=== PATIENT | male | born 1985 | race Caucasian/White ===

== ENCOUNTER → 2020-01-12 15:06 | Outpatient (CLI) | payer OTHER, SELFPAY ==
--- NOTE | ~2020-01-12 | US_ITS ---
EXAMINATION: US scrotum doppler DATE: 01/12/2020 15:44 INDICATION: Chronic palpable area at the right testis. TECHNIQUE: Testicular sonogram utilizing grayscale and Doppler COMPARISON: None. FINDINGS: The right testis measures 5.7 x 3.0 x 3.2 cm. The left testis measures 4.9 x 2.8 x 3.4 cm. Symmetric normal grayscale appearance to both testes. There is normal vascular flow to both testes. The palpabl e abnormality at the right testis corresponds to a benign 3 mm anechoic tunica cyst. The right epidid ymis is normal with normal vascular flow. The left epididymis is normal with normal vascular flow. Th ere is no varicocele or hydrocele. IMPRESSION: 1. 3 mm tunica cyst along the periphery of the right testis which corresponds to the palpable abnorm ality of concern. Otherwise normal scrotal ultrasound. Reviewed, dictated and finalized at location A. 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 3 mm tunica cyst along the periphery of the right testis which corresponds to the palpable abnormality of concern. Otherwise normal scrotal ultrasound.
== END ==
PROVIDERS: PCP Internal Medicine; Visit Provider Nurse Practitioner
DX: N50.89 Other specified disorders of the male genital organs (principal)
CPT/HCPCS: 76870; 93976

== ENCOUNTER 2020-08-22 16:07 | Observation (INO) | payer OTHER, SELFPAY ==
--- NOTE | ~2020-08-22 | US_ITS ---
EXAMINATION: US right upper quadrant DATE: 08/23/2020 08:19 INDICATION: Abnormal liver function tests. Abdominal pain. TECHNIQUE: Multiple grayscale and Doppler ultrasound images of the abdomen were obtained. COMPARISON: CT abdomen and pelvis 08/22/2020 FINDINGS: The visualized portions of the head and body of the pancreas are normal. The liver is charlie l without focal lesion. There is no liver surface nodularity. There is normal flow in main portal vei n. The gallbladder is normal in size and contains gallstones. No gallbladder wall thickening or sonog raphic Renee sign. The common duct is normal and measures 5 mm. IMPRESSION: 1. Cholelithiasis. No evidence of acute cholecystitis. Reviewed, dictated and finalized at location A.
--- NOTE | ~2020-08-22 | XR_ITS ---
EXAMINATION: XR ERCP DATE: 08/24/2020 13:51 INDICATION: Choledocholithiasis. TECHNIQUE: 5 spot fluoroscopic images of the right upper quadrant were obtained during endoscopic ret rograde cholangiopancreatography (ERCP). Fluoroscopy exposure time was 140 seconds. COMPARISON: Cholangiogram 08/23/2020 FINDINGS: Images demonstrate the endoscope in the second portion of the duodenum. There is opacificat ion of the biliary tree. Images demonstrate a balloon sweeping the common duct. There are surgical cl ips from cholecystectomy. IMPRESSION: 1. Balloon sweeping of the common duct. Please refer to the ERCP procedure note for additional detail s. Reviewed, dictated and finalized at location A. IMPRESSION: 1. Balloon sweeping of the common duct. Please refer to the ERCP procedure note for additional details.
--- NOTE | ~2020-08-22 | XR_ITS ---
EXAMINATION: XR cholangiogram surg 1st inj EXAM DATE: 08/23/2020 19:45 INDICATION: Gallstones. TECHNIQUE: Multiples Cine fluoroscopic images were obtained during injection of the cystic duct duri ng laparoscopic cholecystectomy. Procedure performed by Dr. Kirill Butt DO on 08/23/2020 19: 45, radiologist was not present. Total fluoroscopic time of 0.5 minutes. A total of 255 images sent to PACS from the exam. There is no prior study for comparison. FINDINGS: The cystic duct has been injected. There is mild common hepatic duct dilation. There is a filling defect which is mobile, in the distal aspect of the common bile duct on all 3 injections, medel spicious for cholelithiasis. Forward flow of contrast confirmed into the duodenum. Contrast extrava sation is most likely from the injection site. IMPRESSION: CBD filling defect could be choledocholithiasis. Ampulla patent. Reviewed, dictated and finalized at location A.
--- NOTE | ~2020-08-22 | CT_ITS ---
EXAMINATION: CT abdomen pelvis w con DATE: 08/22/2020 20:44 INDICATION: Abdominal pain TECHNIQUE: Computed tomography (CT) of the abdomen and pelvis was performed with 100 cc Omnipaque 350 intravenous contrast. The dose-length product was 1075.18 mGy-cm. Automated exposure control and ite rative reconstruction technique were employed. COMPARISON: No prior studies for comparison. FINDINGS: There is bibasilar dependent atelectasis. Heart size upper normal. No significant pleural o r pericardial effusion. There is mild biliary dilatation with common bile duct measuring 1 cm at the pancreatic head. Gallbladder is mildly distended. The pancreas, adrenal glands are unremarkable. The spleen is unremarkable. There is an accessory splenule. There is a left renal cyst. Bowel pattern non obstructive. There is a 2 cm left renal cyst. There are small subcentimeter hypodensities of the kidn eys, most likely cysts. No free air or free fluid. Nonobstructive bowel gas pattern. No evidence for diverticulitis or appendicitis. No abnormal pelvic masses or fluid collections. There is grade 1 spon dylolisthesis at L5-S1 secondary to bilateral spondylolysis. IMPRESSION: 1. Mild gallbladder distention with biliary dilatation. CBD measures 1 cm. No obstructing stone or ma ss identified. Reviewed, dictated and finalized at location A. IMPRESSION: 1. Mild gallbladder distention with biliary dilatation. CBD measures 1 cm. No o bstructing stone or mass identified.
[2020-08-22 16:19] VITALS: BP 149/90; PULSE 91; RESP 16; TEMP 36.4; O2SAT 100
[2020-08-22 16:30] LABS: Basophils Absolute Auto 0.1 K/mm3 (0.0-0.1); Basophils Percent Auto 0.4 % (0.2-1.2); Eosinophils Absolute Auto 0.3 K/mm3 (0-0.3); Eosinophils Percent Auto 2.3 % (0-4.4); Hematocrit 56.5 % (42.0-52.0); Hemoglobin 18.1 g/dL (14.0-18.0); Immature Granulocyte Absolute 0.04 K/mm3 (0.00-0.031); Immature Granulocyte Percent A 0.3 % (0-0.5); Lymphocytes Percent Auto 12.1 % (18.3-44.2); Mean Corpuscular Hemoglobin 28.6 pg (26-34); Mean Corpuscular Volume 89.4 fl (80-100); Mean Platelet Volume 9.3 fl (7.4-10.4); Monocytes Absolute Auto 0.7 K/mm3 (0.1-0.6); Monocytes Percent Auto 5.8 % (2.6-8.5); Neutrophils Absolute Auto 9.8 K/mm3 (1.3-6.7); Neutrophils Percent Auto 79.1 % (45.5-73.1); Platelet Count Result 297 k/mm3 (150-375); Red Blood Count 6.32 M/mm3 (4.6-6.20); Red Cell Distribution Width 14.4 % (11.5-14.5); White Blood Count 12.4 K/mm3 (4.5-10.0)
[2020-08-22 16:41] LABS: Albumin Level 4.8 g/dL (3.5-5.1); Alkaline Phosphatase 180 U/L (38-126); Anion Gap 8 mmol/L (8-16); Aspartate Amino Transferase 303 U/L (17-59); Bilirubin,Total 2.4 mg/dL (0.2-1.3); Blood Urea Nitrogen 12 mg/dL (9-20); Calcium 9.4 mg/dL (8.4-10.2); Carbon Dioxide 29 mmol/L (22-30); Chloride 103 mmol/L (98-107); Estimated CRCL calculation 130 ml/min; Estimated Glomerular Filt Rate > 60; Glucose 99 mg/dL (75-110); Sodium 140 mmol/L (137-145)
[2020-08-22 16:49] LABS: Add Urine Microscopic? YES; Amorphous Sediment Urine Few; Appearance Urine Clear (Clear); Bacteria Urine Trace /hpf; Bilirubin Urine Negative (Negative); Blood Urine Negative (Negative); Color Urine Amber (Yellow); Glucose Urine UA Negative (Negative); Ketones Urine Negative (Negative); Leukocyte Esterase Ur Negative LEU/UL (Negative); Mucus Urine Rare /lpf; Nitrate Urine Negative (Negative); Protein Urine Negative (Negative); Specific Grav Ur 1.017 (1.001-1.035); Squamous Epithelial Cell Urine Rare /hpf (Few); WBC Urine 0-3 /hpf
[2020-08-22 16:51] LABS: Alanine Aminotransferase 820 U/L (4-50); Lipase 2975 U/L (23-300)
--- NOTE | 2020-08-22 20:16 | ED.GENADULT ---
HPI - General Adult General Chief complaint: Abdominal Pain Stated complaint: abd pain Time Seen by Provider: 08/22/20 19:51 Source: RN notes reviewed History of Present Illness HPI narrative: Patient presents emergency department from home for abdominal pain. Patient states he has had pain since approximately noon today the pain is located in the upper abdomen and does not radiate described as sharp and stabbing notes associated nausea he denies any fevers or chills chest pain shortness of breath diarrhea or any other symptoms he states he had similar episode approximately a year ago was seen in the ER diagnosed with an ulcer at that time and on a PPI which did help states he got off of that had another episode abdominal pain and was restarted on it by his PCP scheduled to see Dr. Adair Kovacs tomorrow for GI consultation Related Data Home Medications Medication Instructions Recorded Confirmed escitalopram oxalate 20 mg tablet 20 mg PO DAILY 10/28/19 lamotrigine 150 mg tablet 150 mg PO DAILY 10/28/19 Allergies Allergy/AdvReac Type Severity Reaction Status Date / Time No Known Allergies Allergy Mild Verified 08/22/20 20:08 Review of Systems Review of Systems: Narrative: Gen.: Denies fevers or chills ENT: Denies congestion Respiratory: Denies shortness of breath or cough CV: Denies chest pain or palpitations GI: See HPI denies burning, urgency, frequency or hematuria Musculoskeletal: Denies back pain or muscle pain Neuro: Denies numbness, tingling, weakness or focal weakness Skin: Denies rash Except as documented, all other systems reviewed and negative PMFSH Past Medical History Medical History Depression Social History Social History Smoking status: Never smoker Alcohol intake: current Alcohol use details: rarely Gender identity (if verbalized by the patient): Male Exam Narrative: Exam Narrative: APPEARANCE: No acute distress, nontoxic, resting in bed HEENT: Normocephalic, atraumatic, OMM RESPIRATORY: No respiratory distress, clear to auscultation bilaterally with no rhonchi wheezing or rales CARDIOVASCULAR: RRR s murmur ABDOMINAL: Soft nondistended tender palpation epigastric, right upper quadrant and left upper quadrant no tenderness right lower quadrant left lower quadrant no rebound or guarding MUSCULOSKELETAl: Moves all extremities. No clubbing, cyanosis or edema. NEURO: Awake and alert. Following commands, speech normal, no focal deficits SKIN:: Warm, dry. Normal Color PSYCHIATRIC: Normal affect/mood Course Course Emergency Course: Called and discussed Wikiera presentation work-up agrees with consult at this time Discussed with Suraj for GI presentation work-up agrees with consult request patient started on Zosyn Discussed with Dr. Willett presentation work-up agrees with admission at this time Discussed with patient and family results of workup and diagnosis. Discussed need for admission. Patient and family understand and agree to current treatment plan Vital Signs Vital signs: Vital Signs Temperature 97.6 F 08/22/20 16:19 Pulse Rate 91 08/22/20 16:19 Respiratory Rate 16 08/22/20 16:19 Blood Pressure 149/90 H 08/22/20 16:19 Pulse Oximetry 100 08/22/20 16:19 Temperature 97.6 F 08/22/20 16:19 Pulse Rate 68 08/22/20 20:56 Respiratory Rate 18 08/22/20 20:56 Blood Pressure 130/79 08/22/20 20:56 Pulse Oximetry 100 08/22/20 20:56 Medical Decision Making Vital Signs Vital Signs: Vital Signs Temperature 97.6 F 08/22/20 16:19 Pulse Rate 91 08/22/20 16:19 Respiratory Rate 16 08/22/20 16:19 Blood Pressure 149/90 H 08/22/20 16:19 Pulse Oximetry 100 08/22/20 16:19 Temperature 97.6 F 08/22/20 16:19 Pulse Rate 68 08/22/20 20:56 Respiratory Rate 18 08/22/20 20:56 Blood Pressure 130/79 08/22/20 20:56
[2020-08-22] MEDS: SODIUM CHLORIDE 0.9% IV 1,000 ML 999 ML IV CONT ×2 (20:18→20:19)
[2020-08-22] MEDS: ONDANSETRON INJ 4 MG/2 ML VIAL IV PUSH (20:19)
[2020-08-22] MEDS: MORPHINE SULFATE (*CRX) 4 MG/ML INJ IV PUSH (20:19)
[2020-08-22 20:56] VITALS: BP 130/79; PULSE 68; RESP 18; O2SAT 100
[2020-08-22 22:03] VITALS: BP 106/65; PULSE 70; RESP 18; O2SAT 100
[2020-08-22 22:44] VITALS: BP 100/59; PULSE 71; RESP 18; O2SAT 98
[2020-08-22] MEDS: SODIUM CHLORIDE 0.9% IV 1,000 ML 125 ML IV CONT (23:09)
--- NOTE | 2020-08-22 23:23 | ADMGEN ---
This patient, Braxton Strickland, was admitted to 2 Medical Room 261-01. Patient/family oriented to hospital policies and general routines including ID bracelet, bed and alarms, visiting hours, pain management, procedures, bathroom and other care routines, personal items, smoking policy, room service/diet, and visiting hours. Information on how to activate the Rapid Response Team has been discussed. Patient/Family are encouraged to report perceived risks to care and to ask questions if they do not understand what they are told or what they should do.
[2020-08-22 23:55] VITALS: BP 133/69; PULSE 71; RESP 16; TEMP 36.4; O2SAT 100; BMI 32.6
[2020-08-23] VITALS (10 sets, daily range): BP systolic 99–144; BP diastolic 43–80; PULSE 59–82; RESP 15–20; TEMP 36–36.4; O2SAT 93–100
--- NOTE | 2020-08-23 04:09 | PM.IMHP ---
H&P: HPI History of Present Illness Date/Time: 08/23/20 04:09 Chief Complaint: Abdominal pain Narrative: 34-year-old previously healthy male who presented to the ER with recurrent abdominal pain. The patient reports that he has had intermittent abdominal pain for over 2 years . He reports that his abdominal pain has become more frequent over the last 2 weeks. His pain has been occurring every 3 days. Pain is worse after eating. The pain is in the epigastric region and does not radiate. his pain is a 10/10 when it occurs. Is accompanied by severe diaphoresis due to his pain. He is not having any nausea and vomiting with the symptoms. He has not noticed any scleral icterus or jaundice. His pain usually lasts about 4 hours each time. But this time the pain is lasted approximately 8 hours. It was improved after morphine administration. The pain had pretty much resolved until the histotechnologist supervisor hours this morning at which time he developed a dull ache. He reports that the pain is directly in the epigastric region and is worse with palpation. He denies any measured fevers but was feeling chilled. The pain is sharp and stabbing in nature. He had recently been treated with PPI therapy which seemed to help his symptoms. He had not seen a greenhouse technician previously. He was recently referred to Dr. Young And was supposed to see him 08/23/2020 in the clinic. He does admit to snoring frequently. He does not feel well rested after sleeping. Review of Systems Review of Systems: Narrative: 12 systems were reviewed with pertinent positives and negatives per HPI. Except as documented in the HPI, all other systems were reviewed and are negative. [facility] Past Medical History Medical History (Updated 08/23/20 @ 04:15 by Karissa Willett DO) Depression Thoracic back pain Surgical History Surgical History (Updated 08/23/20 @ 07:28 by Karissa Willett DO) No pertinent past surgical history Family History Family History (Updated 08/23/20 @ 07:27 by Karissa Willett DO) Mother Patient's mother is in good health Father Patient's father is in good health Social History Social History (Updated 08/23/20 @ 07:30 by Karissa Willett DO) Social History: primary care physician: Dr. Harry Segura code status: Full code surrogate decision maker: Smoking status: Never smoker Alcohol intake: never Alcohol use details: rarely Substance use: never Additional living arrangements comments: He lives in [place] with his of 10 years. He has a 21-year-old an 18-year-old child. 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 Gender identity (if verbalized by the patient): Male Spiritual care concerns: No Meds Home Medications and Allergies Home Medications Medication Instructions Recorded Confirmed Type escitalopram oxalate 20 mg tablet 20 mg PO DAILY 10/28/19 08/23/20 History lamotrigine 150 mg tablet 150 mg PO DAILY 10/28/19 08/23/20 History omeprazole 20 mg tablet,delayed 20 mg PO DAILY #90 tablet 08/06/20 08/23/20 Rx release Allergies Allergy/AdvReac Type Severity Reaction Status Date / Time No Known Allergies Allergy Mild Verified 08/22/20 20:08 Vital Signs Vital Signs - 24 hr 08/22/20 16:19 08/22/20 20:56 08/22/20 22:03 Temperature 97.6 F Pulse Rate 91 68 70 Respiratory Rate 16 18 18 Blood Pressure 149/90 H 130/79 106/65 Pulse Oximetry 100 100 100 08/22/20 22:44 08/22/20 23:55 Temperature 97.6 F Pulse Rate 71 71 Respiratory Rate 18 16 Blood Pressure 100/59 L 133/69 Pulse Oximetry 98 100 Exam Narrative: Exam Narrative: PHYSICAL EXAM: WEIGHT 118.4 kg BMI 32.6 General: No acute distress, well-developed well-nourished HEENT: crowded posterior oropharynx, mucous membranes are tacky, good dentition, no scleral icterus, no conjunctival pallor, right conjunctival is slightly injected R
[2020-08-23 05:49] LABS: Basophils Percent Auto 0.3 % (0.2-1.2); Eosinophils Absolute Auto 0.3 K/mm3 (0-0.3); Eosinophils Percent Auto 4.2 % (0-4.4); Hematocrit 51.5 % (42.0-52.0); Hemoglobin 16.2 g/dL (14.0-18.0); Immature Granulocyte Absolute 0.02 K/mm3 (0.00-0.031); Immature Granulocyte Percent A 0.3 % (0-0.5); Lymphocytes Absolute Auto 1.33 K/mm3 (0.9-3.2); Lymphocytes Percent Auto 17.1 % (18.3-44.2); Mean Corpuscular HGB Conc 31.5 g/dl (32-36); Mean Corpuscular Hemoglobin 28.5 pg (26-34); Mean Corpuscular Volume 90.5 fl (80-100); Mean Platelet Volume 9.4 fl (7.4-10.4); Monocytes Absolute Auto 0.6 K/mm3 (0.1-0.6); Monocytes Percent Auto 8.1 % (2.6-8.5); Neutrophils Absolute Auto 5.5 K/mm3 (1.3-6.7); Platelet Count Result 255 k/mm3 (150-375); Red Blood Count 5.69 M/mm3 (4.6-6.20); Red Cell Distribution Width 14.1 % (11.5-14.5); White Blood Count 7.8 K/mm3 (4.5-10.0)
[2020-08-23 05:58] LABS: Alanine Aminotransferase 675 U/L (4-50); Albumin Level 3.8 g/dL (3.5-5.1); Alkaline Phosphatase 173 U/L (38-126); Anion Gap 7 mmol/L (8-16); Aspartate Amino Transferase 233 U/L (17-59); Bilirubin,Total 4.2 mg/dL (0.2-1.3); Blood Urea Nitrogen 9 mg/dL (9-20); Calcium 8.8 mg/dL (8.4-10.2); Carbon Dioxide 26 mmol/L (22-30); Chloride 103 mmol/L (98-107); Estimated CRCL calculation 118 ml/min; Estimated Glomerular Filt Rate > 60; Glucose 91 mg/dL (75-110); Lipase 184 U/L (23-300); Potassium 3.7 mmol/L (3.4-5.0); Sodium 136 mmol/L (137-145)
[2020-08-23] MEDS: SODIUM CHLORIDE 0.9% IV 1,000 ML 125 ML IV CONT (08:30)
--- NOTE | 2020-08-23 12:49 | PM.CNGS ---
Assessment and Plan Assessment and plan (1) Choledocholithiasis: Code(s): K80.50 - Calculus of bile duct without cholangitis or cholecystitis without obstruction Status: Acute Assessment and Plan: CT scan and ultrasound reviewed and discussed with the patient in detail. CT suggests gallbladder and CBD dilatation, but no cholelithiasis noted. Elevated LFTs and lipase on admission. RUQ ultrasound this morning showed cholelithiasis with a normal CBD. LFTs remain elevated this morning with a slight increase in total bilirubin. CBD appears normal on the ultrasound this morning and he is clinically improving. This suggests that the stone may have passed. We discussed treatment options with the patient, including the option of proceeding with a laparoscopic cholecystectomy, possible open, with intraoperative cholangiogram by Dr. Butt today. We also discussed that he may still require an ERCP after surgery if there is evidence of a CBD stone with the IOC. Description of the procedure, risks, benefits, expected outcomes, and expected recovery were discussed with the patient in detail. All questions were answered. We will proceed with surgery later today. He is currently on IV Zosyn. Will keep him NPO, and continue IV fluids and analgesics. Thank you for allowing us to see the patient in consultation and we will continue to follow along with you. (2) Acute biliary pancreatitis: Code(s): K85.10 - Biliary acute pancreatitis without necrosis or infection Status: Acute Assessment and Plan: Lipase [address] scan with biliary dilatation and elevated LFTs. Likely biliary pancreatitis. Lipase normal today and patient's symptoms have nearly resolved. Recommend cholecystectomy. See plan above. (3) Transaminitis: Code(s): R74.01 - Elevation of levels of liver transaminase levels Status: Acute Assessment and Plan: LFTs elevated on admission with total bilirubin up some this morning. RUQ ultrasound this morning showed the CBD was normal in diameter, potentially passed a gallstone. See plan above. Continue to monitor labs. Additional Plan I have discussed the patient's case and plan of care with Dr. Butt. I did discuss with the patient that on his previous episodes of abdominal pain that have been intermittently occurring since December could be related to other etiologies. He had an outpatient GI referral, which was scheduled for today. GI is consulted and will be evaluating the patient as well. History of Present Illness Consult details Consult date: 07/12/21 Reason for consult: gallstones (Biliary pancreatitis with suspected choledocholithiasis) Requesting physician: Tip Eagle DO Narrative: This is a 34-year-old male who presented to the ER overnight with complaints of epigastric abdominal pain. He has been dealing with intermittent epigastric abdominal pain since December of 2019, when he had a similar episode of severe pain that brought him to the ER. Prior to this, he had been taking a high dose of Ibuprofen for back pain. He was treated for an ulcer and given a omeprazole, but denies every had an EGD or further work-up. He had been continued on the PPI through his PCP and felt his symptoms initially improved, but he continued to have more mild episode of epigastric abdominal pain following eating and drinking that would last about 4 hours. These episodes have recently become more frequent and more severe, therefore his PCP referred him to a [facility] [employer] that was scheduled as an outpatient for today at 1:00 pm. Yesterday, after eating eggs, toast, and ham, he had an onset of severe epigastric pain that was more severe than previous episodes. This persisted through the day, and he ultimately decided to go to the ER for evaluation. CT scan of the abdomen and pelvis showed gallbladder distention with common bile duct dilatation. Labs revealed a WBC count of 12,400, elevated LFTs with a total
--- NOTE | 2020-08-23 14:18 | PM.IMPN ---
Progress Note: A&P Assessment and Plan (1) Choledocholithiasis: Code(s): K80.50 - Calculus of bile duct without cholangitis or cholecystitis without obstruction Status: Acute Assessment and Plan: Patient complained of epigastric pain that radiated to his back elevated liver enzymes AST is 233 ALT is [address] showed mild gallbladder distention with biliary dilatation but no obstructing stones Upper Quadrant Ultrasound: Cholelithiasis, No evidence of acute cholecystitis General surgery consulted thank you for your recommendations Plan is to go to surgery today Morphine 4mg IV Q2hr for pain, Zofran 4mg IV Q4hr for nausea NS 125ml/hr Zosyn 3.375 IV Q6hr NPO Diet (2) Transaminitis: Code(s): R74.01 - Elevation of levels of liver transaminase levels Status: Acute Assessment and Plan: AST 233, ALT 675 RUQ ultrasound showed cholecystitis Will trend in the am (3) Epigastric pain: Code(s): R10.13 - Epigastric pain Status: Acute Assessment and Plan: Better. Will have surgery to improve it. Subjective Date/time seen: 08/23/20 14:10 Interval history: Patient is a 34 year old male with a past medical history of depression and back pain that presented to the ED for evaluation of abdominal pain. Today patient stated that his pain was about a 2/10. He was in bed sleeping when I walked in. He stated that his pain is in his epigastric region of his abdomen. He also stated that it has been well controlled. Plan is for this patient to go to the OR for a cholecystectomy. Patient denies any chest pain, shortness of breath, nausea, or vomiting. Review of Systems Review of Systems: All systems reviewed & are unremarkable except as noted in HPI and below Exam Const: General: cooperative, healthy appearing, comfortable, no acute distress, well developed, alert, awake, Physically active, ill appearing and tired appearing Nutritional Appearance: average body habitus, well nourished and overweight Orientation/consciousness: oriented to person, oriented to place, oriented to time and patient oriented x3 Limitations: no limitations HENMT: Head: normal to inspection Ears: hearing grossly normal bilaterally General nose exam: Normal external nose present Mouth: Yes Normal oral and palatal mucosa present, Yes lip normal and Yes tongue normal Teeth and gingiva: abnormal tooth and associated gingiva and poor dentition Eyes: General: appearance normal, both eyes and all related structures Neck: Neck: normal visual inspection, full ROM, trachea midline and supple Chest: Chest palpation & inspection: normal inspection of the chest Resp: Effort & Inspection: normal respiratory effort and able to speak in complete sentences Auscultation: clear to auscultation bilaterally Cardio: Jugular venous distension: no JVD Rate: regular rate Rhythm: regular rhythm Heart sounds: S1 normal heart sound present and S2 normal heart sound present Peripheral pulses: Peripheral pulses 2+ throughout GI: Inspection: normal to inspection GI Palp: Yes Soft to palpation and No Tenderness to palpation present (GI) Auscultation: normal bowel sounds Skin: General skin exam: normal color and no rashes or lesions noted Lesions: no lesions Rashes: no rashes Trauma: no lacerations or abrasions Wounds: no wounds Hair: normal Nails: normal Neuro: General: patient oriented x3, moves all extremities and Normal light touch and pain sensation Speech: normal speech Gait exam (Neuro): Normal gait present Extrem: General: normal to inspection, full ROM and capillary refill normal Right upper extremity: normal to inspection, full ROM and normal capillary refill Left upper extremity: normal to inspection, full ROM and normal capillary refill Right lower extremity: normal to inspection, full ROM and normal capillary refill Left lower extremity: normal to inspection, full RO
--- NOTE | 2020-08-23 16:17 | WPDGICN ---
Assessment and Plan Assessment and plan (1) Acute biliary pancreatitis: Code(s): K85.10 - Biliary acute pancreatitis without necrosis or infection Status: Acute Assessment and Plan: presentation consistent with gallstone pancreatitis, he is feeling better now. CT scan and ultrasound reviewed, plan is cholecystectomy today with IOC and if stone in bile duct then will proceed with ercp tomorrow (2) Transaminitis: Code(s): R74.01 - Elevation of levels of liver transaminase levels Status: Acute Assessment and Plan: monitor liver enzymes will get hepatitis panel probably related to GS and wonder if already passed stone (3) Epigastric pain: Code(s): R10.13 - Epigastric pain Status: Acute (4) Depression: Qualifiers: Depression Type: other depression Qualified Code(s): F32.89 - Other specified depressive episodes Code(s): F32.9 - Major depressive disorder, single episode, unspecified Status: Acute GI Consult Note Consult date/time: 08/23/20 16:17 Reason for consult: elevated liver enzymes, GS pancreatitis HPI: Braxton Strickland is a 34 year old male with intermittent epigastric abdominal pain since December of 2019 normally worse after eating certain food- he says that pain will resolve after 2-3 hours but last 2 weeks with more intense and persistent pain, finally he decided to come to ER after severe pain after eating eggs, toast, and ham, denies nausea or vomiting, he has been taking ppi at home given by primary. CT scan of the abdomen and pelvis reviewed and showed gallbladder distention with common bile duct dilatation, no obvious stone or mass. Labs revealed WBC count of 12,400, elevated LFTs with a total bilirubin of 2.4, and lipase 2975. He then had ultrasound that showed cholelithiasis. No evidence of acute cholecystitis. He never had EGD, denies history of pancreatitis, no alcohol use. He is healthy otherwise. Review of Systems Constitutional: Constitutional: Denies fatigue Eyes: Eyes: Denies blurry vision ENT: Reports Normal hearing present Cardiovascular: Cardiovascular: Denies chest pain Respiratory: Respiratory: Denies dyspnea Gastrointestinal: Gastrointestinal: Reports abdominal pain and Denies vomiting Genitourinary: Genitourinary: Denies dysuria Musculoskeletal: Musculoskeletal: Denies neck pain Integumentary/Breasts: Skin/Breast: Denies dry skin Neurologic: Denies headache(s) Psychiatric: Psychiatric: Denies anxiety [facility] Past Medical History Medical History Depression Thoracic back pain Surgical History Surgical History No pertinent past surgical history Family History Family History Mother Patient's mother is in good health Father Patient's father is in good health Other Gallbladder disease Social History Social History Social History: primary care physician: Dr. Harry Segura code status: Full code surrogate decision maker: Smoking status: Never smoker Alcohol intake: never Alcohol use details: rarely Substance use: never Additional living arrangements comments: He lives in [place] with his of 10 years. He has a 21-year-old an 18-year-old child. 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 Gender identity (if verbalized by the patient): Male Spiritual care concerns: No Meds Home Medications and Allergies Home Medications Medication Instructions Recorded Confirmed Type escitalopram oxalate 20 mg tablet 20 mg PO DAILY 10/28/19 08/23/20 History lamotrigine 150 mg tablet 150 mg PO DAILY 10/28/19 08/23/20 History omeprazole 20 mg tablet,delayed 20 mg PO DAILY #90 tablet 08/06/20 08/23/20 Rx rele
--- NOTE | 2020-08-23 18:29 | WPDHPUPDATE1 ---
History and Physical Update Update Date/Time: 08/23/20 18:29 History and Physical has been reviewed, including an updated exam of the patient. There are NO changes in the patient's condition. Risks, benefits, and alternatives have been discussed and questions answered. Patient agrees to proceed with procedure.
--- NOTE | 2020-08-23 18:32 | PC.NURSE ---
pt to surgery via bed
--- NOTE | 2020-08-23 18:41 | WPDANESEPPF ---
Anes - Initial Pre Proc Eval Procedure: Operation Date: 08/23/20 16:00 Proposed Procedures p Laparoscopic Cholecystectomy With Intraoperative Cholangiograms,Possible Open - Kirill Butt DO Date/Time: 08/23/20 18:41 Surgeon: ADRIAN Craig Pre Op Diagnosis: Abd Pain w/elevated LFTs and Lipase r/o Choledocho Patient Data Age: 34 Gender: M Height: 1.91 m Weight: 118.4 kg Last Vital Signs Temp 36.4 C 08/23/20 14:00 Pulse 76 08/23/20 14:00 Resp 20 08/23/20 14:00 BP 133/66 08/23/20 14:00 Pulse Ox 99 08/23/20 14:00 Allergies Allergy/AdvReac Type Severity Reaction Status Date / Time No Known Allergies Allergy Mild Verified 08/22/20 20:08 Home Medications Medication Instructions Recorded Confirmed Type escitalopram oxalate 20 mg tablet 20 mg PO DAILY 10/28/19 08/23/20 History lamotrigine 150 mg tablet 150 mg PO DAILY 10/28/19 08/23/20 History omeprazole 20 mg tablet,delayed 20 mg PO DAILY #90 tablet 08/06/20 08/23/20 Rx release Laboratory Tests 08/23/20 08/23/20 08/23/20 05:16 05:16 13:04 WBC 7.8 K/mm3 K/mm3 (4.5-10.0) RBC 5.69 M/mm3 M/mm3 (4.6-6.20) Hgb 16.2 g/dL g/dL (14.0-18.0) Hct 51.5 % % (42.0-52.0) MCV 90.5 fl fl (80-100) MCH 28.5 pg pg (26-34) MCHC 31.5 g/dl L g/dl (32-36) RDW 14.1 % % (11.5-14.5) Plt Count 255 k/mm3 k/mm3 (150-375) MPV 9.4 fl fl (7.4-10.4) Immature Gran % (Auto) 0.3 % % (0-0.5) Neut % (Auto) 70.0 % % (45.5-73.1) Lymph % (Auto) 17.1 % L % (18.3-44.2) Granite % (Auto) 8.1 % % (2.6-8.5) Eos % (Auto) 4.2 % % (0-4.4) Baso % (Auto) 0.3 % % (0.2-1.2) Lymph # (Auto) 1.33 K/mm3 K/mm3 (0.9-3.2) Granite # (Auto) 0.6 K/mm3 K/mm3 (0.1-0.6) Eos # (Auto) 0.3 K/mm3 K/mm3 (0-0.3) Baso # (Auto) 0.0 K/mm3 K/mm3 (0.0-0.1) Abs Immat Gran (auto) 0.02 K/mm3 K/mm3 (0.00-0.031) Absolute Neuts (auto) 5.5 K/mm3 K/mm3 (1.3-6.7) Absolute Nucleated RBC 0.0 K/mm3 K/mm3 (0.0-0.012) Nucleated RBC % 0.0 % % (0.0-0.2) Sodium 136 mmol/L L mmol/L (137-145) Potassium 3.7 mmol/L mmol/L (3.4-5.0) Chloride 103 mmol/L mmol/L (98-107) Carbon Dioxide 26 mmol/L mmol/L (22-30) Anion Gap 7 mmol/L L mmol/L (8-16) BUN 9 mg/dL mg/dL (9-20) Creatinine 1.10 mg/dL mg/dL (0.7-1.3) Estim Creat Clear Calc 118 ml/min ml/min Estimated GFR > 60 (59 - ) Glucose 91 mg/dL mg/dL (75-110) Calcium 8.8 mg/dL mg/dL (8.4-10.2) Total Bilirubin 4.2 mg/dL H mg/dL (0.2-1.3) AST 233 U/L H U/L (17-59) ALT 675 U/L H U/L (4-50) Alkaline Phosphatase 173 U/L H U/L (38-126) Total Protein 7.0 g/dL g/dL (6.3-8.2) Albumin 3.8 g/dL g/dL (3.5-5.1) Lipase 184 U/L U/L (23-300) Blood Type A Positive Antibody Screen Negative Patient hx anesthesia problems: none Family hx anesthesia problems: none PMFSH Past Medical History Medical History Depression Thoracic back pain Surgical History Surgical History No pertinent past surgical history Family History Family History Mother Patient's mother is in good health Father Patient's father is in good health Other Gallbladder disease Social History Social History Social History: primary care physician: Dr. Harry Segura code status: Full code surrogate decision maker: Smoking status: Never smoker Alcohol intake: su
[2020-08-23] MEDS: BUPIVACAINE/EPINEPHRINE 0.5% 30 ML VIAL INFILTRATE (18:54)
[2020-08-23] MEDS: LACTATED RINGERS 1,000 ML 30 ML IV CONT ×2 (20:02)
--- NOTE | 2020-08-23 20:07 | W.PM.PROC2 ---
Procedure Note - Detailed Date of Procedure 08/23/20 Pre-op Diagnosis Acute biliary pancreatitis, elevated liver enzymes Post-op Diagnosis same Procedure Performed Laparoscopic Cholecystectomy with Intraoperative Cholangiogram Surgeon Kirill Butt, Anesthesia general and local (0.5% bupivicaine with epi) Indications This is a 34-year-old man who presented to the emergency department with acute onset of upper abdominal pain. He has had multiple episodes like this over the past 6 months. Patient was noted to have an elevated white blood count and elevated liver and pancreatic enzymes. CT showed evidence of dilated gallbladder and dilated common bile duct with acute pancreatitis. He was admitted for further treatment. Gallbladder ultrasound showed evidence of cholelithiasis without cholecystitis and his common bile duct was now measuring 3 mm. Discussions were made with the patient about treatment options and decision was made to proceed with laparoscopic cholecystectomy with intraoperative cholangiogram, possible open. Findings Laparoscopic cholecystectomy with intraoperative cholangiogram was performed. The patient's gallbladder was slightly dilated and had a few pericholecystic adhesions. The cystic duct appeared normal in caliber. Intraoperative cholangiogram was obtained with Omnipaque contrast. A distal common bile duct filling defect was identified, but this did not appear to be completely obstructing. The images were sent to the radiologist for interpretation. The gallbladder contained thousands of tiny gallstones and some thickened bile. The gallbladder was removed and sent to the lab for pathology. Description of Procedure Procedure as well as risks, benefits, and alternatives were discussed with patient. Written consent was obtained and placed in chart prior to procedure. The patient was brought back to surgical suite. Patient was placed in supine position on operating table. Time-out was done to confirm patient and procedure. Patient was then intubated by the anesthesia department. Abdomen was prepped and draped in sterile fashion using chlorhexidine prep. 0.5% bupivacaine with epinephrine was infiltrated at each site of incision. A 5 millimeter incision was made near the umbilicus, and a 5 millimeter Optiview trocar was advanced through the abdominal layers under direct visualization. Once inside the abdominal cavity, carbon dioxide was insufflated to create a pneumoperitoneum. The camera was inserted and the abdomen was inspected. No immediate abnormalities were identified. The patient was placed in reverse Trendelenburg position and rotated slightly to the left. An 11 millimeter incision was made in the subxiphoid region, and an 11 millimeter trocar was inserted under direct visualization. Two 5 millimeter incisions were made in the right upper quadrant, and two 5 millimeter trocars were inserted under direct visualization. The gallbladder was identified and grasped at the fundus and retracted superiorly. It was then grasped at the infundibulum retracted laterally. Careful dissection around the neck of the gallbladder was performed using blunt dissection with a [place] grasper and hook electrocautery. The cystic duct was identified, and a window was created behind it. The cystic artery was also identified and a window was created behind it. The critical view of safety was identified, visualizing the cystic duct running directly into the neck of the gallbladder, and the cystic artery running directly into the wall of the gallbladder. A 5 millimeter clip sustainable products marketing manager was then used to place 2 clips proximally and 1 clip distally on the cystic artery. It was then transected using endoscopic scissors. The [place] cholangio clamp was placed across the distal neck of the gallbladder and the cholangiocatheter was advanced into the distal neck of the gallbladder. Bile was able to be aspirated and the catheter flushed with ease. The chandra
--- NOTE | 2020-08-23 20:16 | SUR.PHASEI ---
CHECKED MAR, TYLENOL AND TORADOL ORDERED PREOP NOT GIVEN. DR TOSCANO NOTIFIED. STATES MAY GIVE TORADOL IN PACU, 15MG IVP X1.
[2020-08-23] MEDS: MORPHINE SULFATE (*CRX) 4 MG/ML INJ (21:26)
[2020-08-23] MEDS: LACTATED RINGERS 1,000 ML 100 ML IV CONT (22:59)
[2020-08-24] VITALS (11 sets, daily range): BP systolic 100–124; BP diastolic 53–71; PULSE 69–90; RESP 18–24; TEMP 36.2–36.6; O2SAT 93–100
[2020-08-24] MEDS: MORPHINE SULFATE (*CRX) 4 MG/ML INJ IV PUSH (01:55)
[2020-08-24 05:42] LABS: Basophils Percent Auto 0.2 % (0.2-1.2); Eosinophils Percent Auto 0.2 % (0-4.4); Hematocrit 49.8 % (42.0-52.0); Hemoglobin 15.5 g/dL (14.0-18.0); Immature Granulocyte Absolute 0.04 K/mm3 (0.00-0.031); Immature Granulocyte Percent A 0.4 % (0-0.5); Lymphocytes Absolute Auto 0.86 K/mm3 (0.9-3.2); Lymphocytes Percent Auto 7.8 % (18.3-44.2); Mean Corpuscular HGB Conc 31.1 g/dl (32-36); Mean Corpuscular Volume 89.9 fl (80-100); Mean Platelet Volume 9.5 fl (7.4-10.4); Monocytes Absolute Auto 0.4 K/mm3 (0.1-0.6); Monocytes Percent Auto 3.7 % (2.6-8.5); Neutrophils Absolute Auto 9.7 K/mm3 (1.3-6.7); Neutrophils Percent Auto 87.7 % (45.5-73.1); Platelet Count Result 267 k/mm3 (150-375); Red Blood Count 5.54 M/mm3 (4.6-6.20); Red Cell Distribution Width 14.1 % (11.5-14.5); White Blood Count 11.1 K/mm3 (4.5-10.0)
[2020-08-24 05:51] LABS: Alanine Aminotransferase 591 U/L (4-50); Albumin Level 3.9 g/dL (3.5-5.1); Alkaline Phosphatase 199 U/L (38-126); Anion Gap 10 mmol/L (8-16); Aspartate Amino Transferase 181 U/L (17-59); Bilirubin,Total 4.5 mg/dL (0.2-1.3); Blood Urea Nitrogen 8 mg/dL (9-20); Calcium 8.6 mg/dL (8.4-10.2); Carbon Dioxide 23 mmol/L (22-30); Chloride 103 mmol/L (98-107); Estimated CRCL calculation 142 ml/min; Estimated Glomerular Filt Rate > 60; Glucose 91 mg/dL (75-110); Magnesium 1.7 mg/dL (1.6-2.3); Potassium 3.9 mmol/L (3.4-5.0); Sodium 136 mmol/L (137-145)
[2020-08-24 07:07] LABS: Hepatitis B Surface Antigen Negative (Negative)
[2020-08-24 07:13] LABS: HAV RESULT Negative (Negative); Hepatitis B Core IgM Result Negative (Negative)
[2020-08-24 07:25] LABS: Hepatitis C Virus Antibody Negative (Negative)
[2020-08-24] MEDS: HYDROcodone/acetaminophen (*CRX) 5-325 MG TABLET 1 TAB PO (08:14)
--- NOTE | 2020-08-24 08:52 | PM.PNGS ---
Progress Note: A&P Assessment and Plan (1) Choledocholithiasis: Code(s): K80.50 - Calculus of bile duct without cholangitis or cholecystitis without obstruction Status: Acute Assessment and Plan: POD#1 laparoscopic cholecystectomy and patient doing well. IOC showed distal CBD filling defect, but not completely obstructing flow to the duodenum. Total bilirubin still elevated at 4.5 this am. GI following and appears he is scheduled for an ERCP today. Okay from our standpoint to start advancing his diet to a low fat diet following the procedure. (2) Acute biliary pancreatitis: Code(s): K85.10 - Biliary acute pancreatitis without necrosis or infection Status: Acute Assessment and Plan: Lipase normal. ERCP today. See plan above. (3) Transaminitis: Code(s): R74.01 - Elevation of levels of liver transaminase levels Status: Acute Additional Plan I have discussed the plan of care with Dr. Butt. Subjective Subjective Date/Time Seen: 08/24/20 08:52 Post Op day: 1 (laparoscopic cholecystectomy) Patient reports: afebrile Interval history: Patient seen this morning. He has been NPO since midnight for possible ERCP. Pain well-controlled. No nausea or vomiting. Tolerating activity/walking in the room. No other complaints. Review of Systems Review of Systems: All systems reviewed & are unremarkable except as noted in HPI and below Exam Const: General: comfortable, no acute distress, alert and awake Orientation/consciousness: patient oriented x3 Resp: Effort & Inspection: normal respiratory effort Auscultation: clear to auscultation bilaterally Cardio: Rate: regular rate Rhythm: regular rhythm GI: Inspection: non-distended and incision (Abdominal incisions clean and dry, glue intact.) GI Palp: Yes Soft to palpation and Yes Tenderness to palpation present (GI) (appropriate incisional tenderness) Auscultation: Hypoactive bowel sounds present Skin: General skin exam: normal color Neuro: General: moves all extremities and no focal motor deficits Extrem: General: no clubbing, cyanosis or edema and no calf tenderness Psych: Mental Status: mental status grossly normal Insight: Good insight present (Psych) Judgement: Good judgement present (Psych) Objective Data Vital Signs Vital Signs: Vital Signs - 24 hr 08/23/20 14:00 08/23/20 20:02 08/23/20 20:15 Temperature 97.6 F 96.8 F L Pulse Rate 76 61 59 L Respiratory Rate 20 15 19 Blood Pressure 133/66 99/43 L 101/47 L Pulse Oximetry 99 94 97 08/23/20 20:30 08/23/20 20:45 08/23/20 21:15 Temperature 97 F L Pulse Rate 62 68 72 Respiratory Rate 20 20 20 Blood Pressure 125/80 128/73 144/72 H Pulse Oximetry 100 98 95 08/23/20 21:39 08/23/20 21:43 08/23/20 22:43 Temperature 97.3 F L 97.2 F L Pulse Rate 72 64 82 Respiratory Rate 20 18 20 Blood Pressure 119/65 116/68 Pulse Oximetry 95 93 94 08/24/20 02:43 Temperature 97.8 F Pulse Rate 87 Respiratory Rate 20 Blood Pressure 120/55 L Pulse Oximetry 93 Intake/Output Intake/Output: Intake & Output 08/21/20 08/22/20 08/23/20 08/24/20 23:59 23:59 23:59 23:59 Intake Total 2049 1400 240 Output Total 800 Balance 0 600 240 Meds/Results Medications: Active Medications Generic Name Dose Route Start Last Admin Trade Name Freq PRN Reason Stop Dose Admin Acetaminophen 650 mg 08/23/20 20:58 Acetaminophen 325 Mg Tablet PO Q6H PRN Mild Pain (1-3) or Fever Hydrocodone Bitart/Acetaminophen 1 tab 08/23/20 20:58 08/24/20 08:14 Hydrocodone/Acetaminophen (*Crx) 5-325 Mg Tablet PO 1 tab Q4H PRN Administration Pain Rated 4-6 Hydrocodone Bitart/Acetaminophen 1 tab 08/23/20 20:58 Hydrocodone/Acetaminophen (*Crx) 7.5-325 Mg Tablet PO Q4H PRN Pain Rated 7-10 Piperacillin/Tazobactam/Dextrose 3.375 gm in 50 mls @ 100 mls/hr 08/23/20 03:00 08/24/20 08:10 Zosyn 3.375 Gm/D5w 50ml Pm IVPB 100 mls/hr Q6H S
--- NOTE | 2020-08-24 12:18 | WPDANESEPPF ---
Anes - Initial Pre Proc Eval Procedure: Operation Date: 08/24/20 12:45 Proposed Procedures p Endoscopic Retro Cholangiopancreatogram - Jay Young MD Date/Time: 08/24/20 12:18 Surgeon: ADRIAN Craig Pre Op Diagnosis: Abd Pain w/elevated LFTs and Lipase r/o [place]och[place] Patient Data Age: 34 Gender: M Height: 1.91 m Weight: 118.4 kg Last Vital Signs Temp 36.2 C L 08/24/20 12:15 Pulse 83 08/24/20 12:15 Resp 20 08/24/20 12:15 BP 124/71 08/24/20 12:15 Pulse Ox 98 08/24/20 12:15 Allergies Allergy/AdvReac Type Severity Reaction Status Date / Time No Known Allergies Allergy Mild Verified 08/24/20 12:11 Home Medications Medication Instructions Recorded Confirmed Type escitalopram oxalate 20 mg tablet 20 mg PO DAILY 10/28/19 08/23/20 History lamotrigine 150 mg tablet 150 mg PO DAILY 10/28/19 08/23/20 History omeprazole 20 mg tablet,delayed 20 mg PO DAILY #90 tablet 08/06/20 08/23/20 Rx release Laboratory Tests 08/23/20 08/24/20 08/24/20 13:04 05:17 05:17 WBC 11.1 K/mm3 H K/mm3 (4.5-10.0) RBC 5.54 M/mm3 M/mm3 (4.6-6.20) Hgb 15.5 g/dL g/dL (14.0-18.0) Hct 49.8 % % (42.0-52.0) MCV 89.9 fl fl (80-100) MCH 28.0 pg pg (26-34) MCHC 31.1 g/dl L g/dl (32-36) RDW 14.1 % % (11.5-14.5) Plt Count 267 k/mm3 k/mm3 (150-375) MPV 9.5 fl fl (7.4-10.4) Immature Gran % (Auto) 0.4 % % (0-0.5) Neut % (Auto) 87.7 % H % (45.5-73.1) Lymph % (Auto) 7.8 % L % (18.3-44.2) Webb % (Auto) 3.7 % % (2.6-8.5) Eos % (Auto) 0.2 % % (0-4.4) Baso % (Auto) 0.2 % % (0.2-1.2) Lymph # (Auto) 0.86 K/mm3 L K/mm3 (0.9-3.2) Webb # (Auto) 0.4 K/mm3 K/mm3 (0.1-0.6) Eos # (Auto) 0.0 K/mm3 K/mm3 (0-0.3) Baso # (Auto) 0.0 K/mm3 K/mm3 (0.0-0.1) Abs Immat Gran (auto) 0.04 K/mm3 H K/mm3 (0.00-0.031) Absolute Neuts (auto) 9.7 K/mm3 H K/mm3 (1.3-6.7) Absolute Nucleated RBC 0.0 K/mm3 K/mm3 (0.0-0.012) Nucleated RBC % 0.0 % % (0.0-0.2) Sodium 136 mmol/L L mmol/L (137-145) Potassium 3.9 mmol/L mmol/L (3.4-5.0) Chloride 103 mmol/L mmol/L (98-107) Carbon Dioxide 23 mmol/L mmol/L (22-30) Anion Gap 10 mmol/L mmol/L (8-16) BUN 8 mg/dL L mg/dL (9-20) Creatinine 0.90 mg/dL mg/dL (0.7-1.3) Estim Creat Clear Calc 142 ml/min ml/min Estimated GFR > 60 (59 - ) Glucose 91 mg/dL mg/dL (75-110) Calcium 8.6 mg/dL mg/dL (8.4-10.2) Magnesium 1.7 mg/dL mg/dL (1.6-2.3) Total Bilirubin 4.5 mg/dL H mg/dL (0.2-1.3) AST 181 U/L H U/L (17-59) ALT 591 U/L H U/L (4-50) Alkaline Phosphatase 199 U/L H U/L (38-126) Total Protein 7.0 g/dL g/dL (6.3-8.2) Albumin 3.9 g/dL g/dL (3.5-5.1) Hepatitis A IgM Ab Hep Bs Antigen Hep B Core IgM Ab Hepatitis C Ab Screen Blood Type A Positive Antibody Screen Negative 08/24/20 05:17 WBC RBC Hgb Hct MCV MCH MCHC RDW Plt Count MPV Immature Gran % (Auto) Neut % (Auto) Lymph % (Auto) Webb % (Auto) Eos % (Auto) Baso % (Auto) Lymph # (Auto) Webb # (Auto) Eos # (Auto) Baso # (Auto) Abs Immat Gran (auto) Absolute Neuts (auto) Absolute Nucleated RBC Nucleated RBC % Sodium Potassium Chloride Carbon Dioxide Anion Gap BUN Creatinine Estim Creat Clear Calc Estimated GFR Glucose Calcium Magnesium Total Bilirubin AST
[2020-08-24] MEDS: LACTATED RINGERS 1,000 ML 150 ML IV CONT (12:21)
[2020-08-24] MEDS: INDOMETHACIN 50 MG SUPP.RECT 100 MG RECTAL (13:24)
--- NOTE | 2020-08-24 14:07 | PM.IMPN ---
Progress Note: A&P Assessment and Plan (1) Choledocholithiasis: Code(s): K80.50 - Calculus of bile duct without cholangitis or cholecystitis without obstruction Status: Acute Assessment and Plan: Patient complained of epigastric pain that radiated to his back elevated liver enzymes AST is 181 ALT is [address] showed mild gallbladder distention with biliary dilatation but no obstructing stones Upper Quadrant Ultrasound: Cholelithiasis, No evidence of acute cholecystitis General surgery consulted thank you for your recommendations cholecystectomy performed yesterday 08/25/2020 problems with common bile duct was noted by the surgeon, patient was scheduled for an ERCP today GI consulted thank you for recommendations 5 mm stone was extracted from the common bile duct Morphine 4mg IV Q2hr for pain, Zofran 4mg IV Q4hr for nausea NS 125ml/hr can be DC'd if drinking Zosyn 3.375 IV Q6hr clear liquids today advance diet tomorrow. (2) Transaminitis: Code(s): R74.01 - Elevation of levels of liver transaminase levels Status: Acute Assessment and Plan: AST 181, ALT 591 RUQ ultrasound showed cholecystitis Will trend in the am (3) Epigastric pain: Code(s): R10.13 - Epigastric pain Status: Acute Assessment and Plan: Better. Pain is more in the abdomen generalized Time Spent With Patient Time with patient: 25 - 35 minutes Subjective Date/time seen: 08/24/20 14:07 Interval history: Patient is a 34 year old male with a past medical history of depression and back pain that presented to the ED for evaluation of abdominal pain. Patient did today was still having some pain rates it about a 4/10. Patient also expressed concern about being able to eat I did let the patient know that he was unable to eat full liquids. Patient also was wanting to go to work. Otherwise no complaints from the patient today. Patient denies any chest pain, shortness of breath, nausea, or vomiting. Review of Systems Review of Systems: All systems reviewed & are unremarkable except as noted in HPI and below Exam Const: General: cooperative, healthy appearing, comfortable, no acute distress, well developed, alert, awake, Physically active, ill appearing and tired appearing Nutritional Appearance: average body habitus, well nourished and overweight Orientation/consciousness: oriented to person, oriented to place, oriented to time and patient oriented x3 Limitations: no limitations HENMT: Head: normal to inspection Ears: hearing grossly normal bilaterally General nose exam: Normal external nose present Mouth: Yes Normal oral and palatal mucosa present, Yes lip normal and Yes tongue normal Teeth and gingiva: abnormal tooth and associated gingiva and poor dentition Eyes: General: appearance normal, both eyes and all related structures Neck: Neck: normal visual inspection, full ROM, trachea midline and supple Chest: Chest palpation & inspection: normal inspection of the chest Resp: Effort & Inspection: normal respiratory effort and able to speak in complete sentences Auscultation: clear to auscultation bilaterally Cardio: Jugular venous distension: no JVD Rate: regular rate Rhythm: regular rhythm Heart sounds: S1 normal heart sound present and S2 normal heart sound present Peripheral pulses: Peripheral pulses 2+ throughout GI: Inspection: normal to inspection Auscultation: normal bowel sounds Skin: General skin exam: normal color and no rashes or lesions noted Lesions: no lesions Rashes: no rashes Trauma: no lacerations or abrasions Wounds: wounds noted (Surgical incisions x 4 on abdomen) Hair: normal Nails: normal Neuro: General: oriented to person, oriented to place, oriented to time, patient oriented x3, moves all extremities and Normal light touch and pain sensation Speech: normal speech Gait exam (Neuro): Normal gait present Extrem
[2020-08-25 01:05] VITALS: BP 110/71; PULSE 69; RESP 20; TEMP 36.5; O2SAT 96
[2020-08-25 05:10] VITALS: BP 111/57; PULSE 74; RESP 20; TEMP 36.1; O2SAT 97
[2020-08-25 06:36] LABS: Alanine Aminotransferase 483 U/L (4-50); Albumin Level 3.9 g/dL (3.5-5.1); Alkaline Phosphatase 196 U/L (38-126); Anion Gap 7 mmol/L (8-16); Aspartate Amino Transferase 124 U/L (17-59); Bilirubin,Total 1.9 mg/dL (0.2-1.3); Blood Urea Nitrogen 7 mg/dL (9-20); Calcium 8.7 mg/dL (8.4-10.2); Carbon Dioxide 28 mmol/L (22-30); Chloride 104 mmol/L (98-107); Estimated CRCL calculation 129 ml/min; Estimated Glomerular Filt Rate > 60; Glucose 89 mg/dL (75-110); Potassium 3.8 mmol/L (3.4-5.0); Sodium 139 mmol/L (137-145)
--- NOTE | 2020-08-25 09:09 | PM.PNGS ---
Progress Note: A&P Assessment and Plan (1) Choledocholithiasis: Code(s): K80.50 - Calculus of bile duct without cholangitis or cholecystitis without obstruction Status: Acute Assessment and Plan: ERCP yesterday was successful with sphincterotomy and removal of 4 stones from the CBD. LFTs trending down. Patient doing well and okay to discharge today from a surgical standpoint. Continue low fat diet. Follow-up in [address] Butt. (2) Acute biliary pancreatitis: Code(s): K85.10 - Biliary acute pancreatitis without necrosis or infection Status: Acute Assessment and Plan: Resolved. See plan above. (3) Transaminitis: Code(s): R74.01 - Elevation of levels of liver transaminase levels Status: Acute Assessment and Plan: ERCP successful. LFTs trending down with total bilirubin at 1.9 today. Expect these to continue trending towards normal following the ERCP. Additional Plan I have discussed the plan of care with Dr. Butt. Subjective Subjective Date/Time Seen: 08/25/20 09:09 Post Op day: 2 (lap flo) Patient reports: no new complaints, feels better, tolerating a regular diet (low fat diet), voiding w/o difficulty, flatus and afebrile Interval history: Patient seen this morning. Doing well. Pain is well controlled without requiring any analgesics. Tolerating a low-fat diet this morning. Tolerating activity. He reports feeling ready to go home and wanting to be discharged. Review of Systems Review of Systems: All systems reviewed & are unremarkable except as noted in HPI and below Exam Const: General: comfortable, no acute distress, alert and awake Orientation/consciousness: patient oriented x3 GI: Inspection: non-distended and incision (Abdominal incisions clean and dry, glue intact.) GI Palp: Yes Soft to palpation and No Tenderness to palpation present (GI) Auscultation: normal bowel sounds Skin: General skin exam: normal color Neuro: General: moves all extremities and no focal motor deficits Extrem: General: no clubbing, cyanosis or edema and no calf tenderness Psych: Mental Status: mental status grossly normal Insight: Good insight present (Psych) Judgement: Good judgement present (Psych) Objective Data Vital Signs Vital Signs: Vital Signs - 24 hr 08/24/20 10:43 08/24/20 12:15 08/24/20 13:57 Temperature 97.8 F 97.2 F L 97.2 F L Pulse Rate 88 83 86 Respiratory Rate 20 20 23 H Blood Pressure 120/56 L 124/71 123/70 Pulse Oximetry 94 98 100 08/24/20 14:07 08/24/20 14:17 08/24/20 14:27 Temperature Pulse Rate 78 78 70 Respiratory Rate 24 H 24 H 20 Blood Pressure 121/63 117/69 115/71 Pulse Oximetry 100 100 100 08/24/20 14:37 08/24/20 14:47 08/24/20 18:43 Temperature 97.8 F Pulse Rate 89 69 90 Respiratory Rate 22 H 20 18 Blood Pressure 115/67 114/67 100/53 L Pulse Oximetry 97 97 95 08/24/20 22:43 08/25/20 01:05 08/25/20 05:10 Temperature 97.8 F 97.7 F 97 F L Pulse Rate 90 69 74 Respiratory Rate 18 20 20 Blood Pressure 100/53 L 110/71 111/57 L Pulse Oximetry 95 96 97 Intake/Output Intake/Output: Intake & Output 08/22/20 08/23/20 08/24/20 08/25/20 23:59 23:59 23:59 23:59 Intake Total 2050 1400 1770 640 Output Total 800 Balance 2050 600 1770 640 Meds/Results Medications: Active Medications Generic Name Dose Route Start Last Admin Trade Name Freq PRN Reason Stop Dose Admin Acetaminophen 650 mg 08/23/20 20:58 Acetaminophen 325 Mg Tablet PO Q6H PRN Mild Pain (1-3) or Fever Hydrocodone Bitart/Acetaminophen 1 tab 08/23/20 20:58 08/24/20 08:14 Hydrocodone/Acetaminophen (*Crx) 5-325 Mg Tablet PO 1 tab Q4H PRN Administration Pain Rated 4-6 Hydrocodone Bitart/Acetaminophen 1 tab 08/23/20 20:58 Hydrocodone/Acetaminophen (*Crx) 7.5-325 Mg Tablet PO Q4H PRN Pain Rated 7-10 Piperacillin/Tazobactam/Dextrose 3.375 gm in 50 mls @ 100 mls/hr 08/23/20 03:00 07
--- NOTE | 2020-08-25 09:29 | PM.DS ---
DS: Admitting Diagnosis Admitting Diagnosis Admitting Diagnosis: cholecystitis DS: Discharge Diagnosis Discharge Diagnosis (1) Choledocholithiasis: Code(s): K80.50 - Calculus of bile duct without cholangitis or cholecystitis without obstruction Status: Acute Assessment and Plan: Patient complained of epigastric pain that radiated to his back elevated liver enzymes AST is 181 ALT is [address] showed mild gallbladder distention with biliary dilatation but no obstructing stones Upper Quadrant Ultrasound: Cholelithiasis, No evidence of acute cholecystitis General surgery consulted thank you for your recommendations cholecystectomy performed yesterday 08/25/2020 problems with common bile duct was noted by the surgeon, patient was scheduled for an ERCP today GI consulted thank you for recommendations 5 mm stone was extracted from the common bile duct Morphine 4mg IV Q2hr for pain, Zofran 4mg IV Q4hr for nausea NS 125ml/hr can be DC'd if drinking Zosyn 3.375 IV Q6hr clear liquids today advance diet tomorrow. diet was tolerated will DC on a low-fat diet (2) Transaminitis: Code(s): R74.01 - Elevation of levels of liver transaminase levels Status: Acute Assessment and Plan: AST 124, ALT 483 trending down RUQ ultrasound showed cholecystitis Will trend in the am (3) Epigastric pain: Code(s): R10.13 - Epigastric pain Status: Acute Assessment and Plan: Better. Pain is more in the abdomen generalized DS: Summary Hospital Course Hospital Course: patient is a 34-year-old male with a history of depression who presented to the ED for abdominal pain. Patient was taken for a cholecystectomy on 08/23/20. After removal it was found that he was having slow common bile duct draining which indicated that he need any ERCP which was performed on 08/24/2020. GI was able to remove several stones from the common bile duct. Pain has significantly been reduced. Patient does have 4 abdominal sites. Patient is able to eat and was instructed to be on a low-fat diet. Patient will need to follow-up with general surgery in about 2 weeks. Today patient denies chest pain, shortness of breath, nausea, vomiting, abdominal pain, dizziness, lightheadedness, or syncope. Status at Discharge Functional status at discharge: independent ambulation Overall status at discharge: patient is back to baseline Time Spent with Patient Time attestation: Total time spent providing and/or coordinating discharge services: 37 minutes Time spent: Greater than 30 minutes Specific discharge activities: result review, lab review, education, discharged teaching, physical exam, care planning, diagnostic testing. Exam Const: General: cooperative, healthy appearing, comfortable, no acute distress, well developed, alert, awake, Physically active, ill appearing and tired appearing Nutritional Appearance: average body habitus, well nourished and overweight Orientation/consciousness: oriented to person, oriented to place, oriented to time and patient oriented x3 Limitations: no limitations HENMT: Head: normal to inspection Ears: hearing grossly normal bilaterally General nose exam: Normal external nose present Mouth: Yes Normal oral and palatal mucosa present, Yes lip normal and Yes tongue normal Teeth and gingiva: abnormal tooth and associated gingiva and poor dentition Eyes: General: appearance normal, both eyes and all related structures Neck: Neck: normal visual inspection, full ROM, trachea midline and supple Chest: Chest palpation & inspection: normal inspection of the chest Resp: Effort & Inspection: normal respiratory effort and able to speak in complete sentences Auscultation: clear to auscultation bilaterally Cardio: Jugular venous distension: no JVD Rate: regular rate Rhythm: regular rhythm Heart sounds: S1 normal heart sound present and S2 normal he
[2020-08-25 10:05] VITALS: BP 136/82; PULSE 87; RESP 16; TEMP 36.3; O2SAT 97
--- NOTE | 2020-08-25 12:39 | WPDGIPROGNO ---
Progress Note: A&P Assessment and Plan (1) Choledocholithiasis: Code(s): K80.50 - Calculus of bile duct without cholangitis or cholecystitis without obstruction Status: Acute Assessment and Plan: treated successfully with ercp yesterday, he is doing better (2) Acute biliary pancreatitis: Code(s): K85.10 - Biliary acute pancreatitis without necrosis or infection Status: Acute Assessment and Plan: post cholecystectomy, tolerating diet he can go home today (3) Transaminitis: Code(s): R74.01 - Elevation of levels of liver transaminase levels Status: Acute Assessment and Plan: liver enzymes trending down (4) Epigastric pain: Code(s): R10.13 - Epigastric pain Status: Acute Subjective Date/time seen: 08/25/20 12:39 Interval history: he is doing much better today, ERCP yesterday with sphincterotomy and removal of bile duct stones. Review of Systems Review of Systems: All systems reviewed & are unremarkable except as noted in HPI and below Exam Const: General: comfortable, no acute distress, alert and awake Orientation/consciousness: patient oriented x3 HENMT: General nose exam: Normal nares present Eyes: General: appearance normal, both eyes and all related structures Neck: Neck: supple Resp: Auscultation: clear to auscultation bilaterally Cardio: Rate: regular rate GI: Inspection: non-distended GI Palp: Yes Soft to palpation and No Tenderness to palpation present (GI) Auscultation: normal bowel sounds Skin: General skin exam: normal color Neuro: General: moves all extremities and no focal motor deficits Speech: normal speech Motor exam (neuro): Normal motor muscle tone present throughout Extrem: General: normal to inspection, no clubbing, cyanosis or edema and no calf tenderness Psych: Mental Status: mental status grossly normal Insight: Good insight present (Psych) Judgement: Good judgement present (Psych) Objective Data Vital Signs Vital Signs: Vital Signs - 24 hr 08/24/20 13:57 08/24/20 14:07 08/24/20 14:17 Temperature 97.2 F L Pulse Rate 86 78 78 Respiratory Rate 23 H 24 H 24 H Blood Pressure 123/70 121/63 117/69 Pulse Oximetry 100 100 100 08/24/20 14:27 08/24/20 14:37 08/24/20 14:47 Temperature Pulse Rate 70 89 69 Respiratory Rate 20 22 H 20 Blood Pressure 115/71 115/67 114/67 Pulse Oximetry 100 97 97 08/24/20 18:43 08/24/20 22:43 08/25/20 01:05 Temperature 97.8 F 97.8 F 97.7 F Pulse Rate 90 90 69 Respiratory Rate 18 18 20 Blood Pressure 100/53 L 100/53 L 110/71 Pulse Oximetry 95 95 96 08/25/20 05:10 08/25/20 10:05 Temperature 97 F L 97.4 F L Pulse Rate 74 87 Respiratory Rate 20 16 Blood Pressure 111/57 L 136/82 Pulse Oximetry 97 97 Intake/Output Intake/Output: Intake & Output 08/22/20 08/23/20 08/24/20 08/25/20 23:59 23:59 23:59 23:59 Intake Total 0 1400 1770 690 Output Total 800 Balance 2049 600 1770 690 Meds/Results Medications: Active Medications Generic Name Dose Route Start Last Admin Trade Name Freq PRN Reason Stop Dose Admin Acetaminophen 650 mg 08/23/20 20:58 Acetaminophen 325 Mg Tablet PO Q6H PRN Mild Pain (1-3) or Fever Hydrocodone Bitart/Acetaminophen 1 tab 08/23/20 20:58 08/24/20 08:14 Hydrocodone/Acetaminophen (*Crx) 5-325 Mg Tablet PO 1 tab Q4H PRN Administration Pain Rated 4-6 Hydrocodone Bitart/Acetaminophen 1 tab 08/23/20 20:58 Hydrocodone/Acetaminophen (*Crx) 7.5-325 Mg Tablet PO Q4H PRN Pain Rated 7-10 Piperacillin/Tazobactam/Dextrose 3.375 gm in 50 mls @ 100 mls/hr 08/23/20 03:00 08/25/20 10:25 Zosyn 3.375 Gm/D5w 50ml Pm IVPB Infused Q6H JAYRO Infusion Morphine Sulfate 2 mg 08/23/20 20:58 Morphine Sulfate (*Crx) 2 Mg/Ml Inj IV PUSH Q2H PRN Pain Rated 4-6 Morphine Sulfate 4 mg 08/23/20 20:58 08/24/20 01:55 Morphine Sulfate (*Crx) 4 Mg/Ml Inj IV PUSH 4 mg Q2H VT
== END 2020-08-25 12:50 | disposition home or self-care (01) ==
LOC: ANHED 20:23 → ANH2MED 21:39
PROVIDERS: Emergency Medicine; Internal Medicine Gastroenterology; Nurse Practitioner; Surgery; Admitting Provider Internal Medicine; Emergency Provider Emergency Medicine; PCP Internal Medicine; Visit Provider Internal Medicine
PROC: 0FT44ZZ Resection of Gallbladder, Percutaneous Endoscopic Approach (ICD-10-PCS; CPT 47562; principal; 2020-08-23 16:00)
PROC: (CPT 43260; principal; 2020-08-24 12:45)
DX: K80.64 Calculus of gallbladder and bile duct with chronic cholecystitis without obstruction (principal); K85.10 Biliary acute pancreatitis without necrosis or infection; R74.01 Elevation of levels of liver transaminase levels; F32.9 Major depressive disorder, single episode, unspecified
CPT/HCPCS: 47563; 43264; 43262; 36415; 74177; 74300; 74329; 76705; 80053; 80074; 81001; 83690; 83735; 85025; 86850; 86900; 86901; 88304; 96361; 96365; 96375; 99285; A9270; G0378; J0330; J1100; J2270; J2405; J2543; J2704; J2710; J3010; J7030; J7120; Q9966; Q9967

== ENCOUNTER 2021-10-12 13:56 | Outpatient (CLI) | payer OTHER, SELFPAY ==
[2021-10-12 18:59] LABS: Basophils Absolute Auto 0.1 K/mm3 (0.0-0.1); Basophils Percent Auto 0.8 % (0.2-1.2); Eosinophils Absolute Auto 0.2 K/mm3 (0-0.3); Eosinophils Percent Auto 3.3 % (0-4.4); Hematocrit 47.4 % (42.0-52.0); Hemoglobin 15.4 g/dL (14.0-18.0); Immature Granulocyte Absolute 0.02 K/mm3 (0.00-0.031); Immature Granulocyte Percent A 0.3 % (0-0.5); Lymphocytes Absolute Auto 1.84 K/mm3 (0.9-3.2); Lymphocytes Percent Auto 25.2 % (18.3-44.2); Mean Corpuscular HGB Conc 32.5 g/dl (32-36); Mean Corpuscular Hemoglobin 29.6 pg (26-34); Mean Corpuscular Volume 91.2 fl (80-100); Mean Platelet Volume 9.9 fl (7.4-10.4); Monocytes Absolute Auto 0.5 K/mm3 (0.1-0.6); Monocytes Percent Auto 6.2 % (2.6-8.5); Neutrophils Absolute Auto 4.7 K/mm3 (1.3-6.7); Neutrophils Percent Auto 64.2 % (45.5-73.1); Platelet Count Result 263 k/mm3 (150-375); Red Cell Distribution Width 12.5 % (11.5-14.5); White Blood Count 7.3 K/mm3 (4.5-10.0)
[2021-10-12 20:05] LABS: Alanine Aminotransferase 359 U/L (6-50); Albumin Level 5.2 g/dL (3.5-5.1); Alkaline Phosphatase 85 U/L (38-126); Anion Gap 6 mmol/L (8-16); Aspartate Amino Transferase 120 U/L (17-59); Bilirubin,Total 0.5 mg/dL (0.2-1.3); Blood Urea Nitrogen 23 mg/dL (9-20); Calcium 9.5 mg/dL (8.4-10.2); Carbon Dioxide 30 mmol/L (22-30); Chloride 100 mmol/L (98-107); Estimated Glomerular Filt Rate > 60; Glucose 86 mg/dL (65-110); Potassium 4.3 mmol/L (3.4-5.0); Sodium 136 mmol/L (137-145)
== END 2021-10-12 13:57 | disposition home or self-care (01) ==
LOC: ANHGOSHLAB 13:58
PROVIDERS: PCP Internal Medicine; Visit Provider Nurse Practitioner
DX: R74.01 Elevation of levels of liver transaminase levels (principal); R10.9 Unspecified abdominal pain; Z13.29 Encounter for screening for other suspected endocrine disorder
CPT/HCPCS: 36415; 80053; 85025

== ENCOUNTER → 2021-10-20 14:45 | Outpatient (CLI) | payer OTHER, SELFPAY ==
--- NOTE | ~2021-10-20 | CT_ITS ---
EXAMINATION: CT abdomen pelvis w con INDICATION: Mid abdominal pain TECHNIQUE: Computed tomographic images of the abdomen and pelvis were obtained after the administrati on of 100 cc of Omnipaque 350 intravenous contrast. The dose-length product (DLP) was 1259.09 mGy-cm. Automated exposure control and iterative reconstruction technique were employed. COMPARISON: 08/22/2020 FINDINGS: Minimal dependent atelectasis is present in the lung bases. The heart size is normal. There has been interval cholecystectomy. The liver, spleen, pancreas, and adrenal glands are normal. Cysts of the kidneys measure up to 2.4 cm on the left. No pathologically enlarged abdominal or pelvic lymp h nodes are identified. There is no free intraperitoneal gas or evidence of bowel obstruction. The ap pendix is normal. There are bilateral L5 pars defects with grade 1 anterolisthesis of L5 on S1. There is a tiny umbilical hernia containing fat. IMPRESSION: 1. No CT correlate for the patient's symptoms. Reviewed, dictated and finalized at location B.
== END ==
PROVIDERS: PCP Nurse Practitioner; Visit Provider Nurse Practitioner
DX: R10.9 Unspecified abdominal pain (principal); K91.5 Postcholecystectomy syndrome
CPT/HCPCS: 74177; Q9967

== ENCOUNTER 2021-12-05 07:39 | Outpatient (CLI) | payer OTHER, SELFPAY ==
--- NOTE | ~2021-12-05 | MR_ITS ---
EXAMINATION: MR MRCP wo/w con/w 3D wo ind DATE: 12/05/2021 09:10 INDICATION: Abnormal liver function tests. TECHNIQUE: Magnetic resonance imaging (MRI) of the abdomen was performed without and with 20 mL Multi Tony intravenous contrast. Sequences included coronal T2-weighted FS FSE, coronal T2-weighted FSE, a xial T1-weighted LAVA, coronal FS FIESTA, axial dual-echo T1-weighted SPGR, coronal lava-FLEX, sagitt al T2-weighted FSE, axial T2-weighted FSE, and axial DWI. Thick-slab T2-weighted FSE images were obta ined for magnetic resonance cholangiopancreatography (MRCP). Maximum intensity projection 3-D reconst ructions of the volumetric data were created by the technologist. Postcontrast sequences included cor onal LAVA-flex and time course of axial T1-weighted LAVA. COMPARISON: CT abdomen and pelvis 10/20/2021 FINDINGS: ABDOMEN MRI: The liver is normal. There are changes of cholecystectomy. The spleen, pancreas, and adr enal glands are normal. There are cysts in the kidneys measuring up to 18 mm on the left. There are n o dilated loops of bowel. There are no pathologically enlarged lymph nodes. There is no free intraper itoneal fluid. ABDOMEN MRCP: The common duct is normal and measures 7 mm. No choledocholithiasis. IMPRESSION: 1. No etiology for the patient's symptoms. Reviewed, dictated and finalized at location A.
== END 2021-12-05 07:40 | disposition home or self-care (01) ==
PROVIDERS: PCP Nurse Practitioner; Visit Provider Internal Medicine Gastroenterology
DX: R10.11 Right upper quadrant pain (principal); R74.01 Elevation of levels of liver transaminase levels; Z90.49 Acquired absence of other specified parts of digestive tract
CPT/HCPCS: 74183; 76376; A9577

== ENCOUNTER 2022-03-03 01:44 | Day surgery (SDC) | payer OTHER, SELFPAY ==
[2022-02-20 15:31] VITALS: BMI 33.0
[2022-03-03 11:48] VITALS: BP 127/76; PULSE 72; RESP 16; TEMP 36; O2SAT 99; BMI 31.1
[2022-03-03] MEDS: LACTATED RINGERS 1,000 ML 150 ML IV CONT (11:55)
--- NOTE | 2022-03-03 12:30 | PM.HPGS ---
History of Present Illness History of Present Illness Consent: Risks, benefits, and alternatives have been discussed and questions answered. Patient agrees to proceed with procedure. Chief complaint: abdominal pain Narrative: Braxton Strickland is a 36 year old male with intermittent epigastric pain probably once a week, he had GS pancreatitis treated with ercp- sphincterotomy and removal of stones. Review of Systems Constitutional: Constitutional: Denies headache(s) and Denies weakness Eyes: Eyes: Denies blurry vision ENT: Reports Normal hearing present, Denies headache(s) and Denies neck pain Cardiovascular: Cardiovascular: Denies chest pain and Denies dyspnea Respiratory: Respiratory: Denies dyspnea Gastrointestinal: Gastrointestinal: Reports no additional gastrointestinal complaints Genitourinary: Genitourinary: Denies dysuria Musculoskeletal: Musculoskeletal: Denies neck pain Integumentary/Breasts: Skin/Breast: Denies dry skin Neurologic: Reports Normal hearing present, Denies headache(s) and Denies weakness Psychiatric: Psychiatric: Denies anxiety Endocrine: Endocrine: Denies change in body appearance Hematologic/Lymphatic: Hematologic/Lymphatic: Denies easy bleeding Allergic/Immunologic: Allergic/Immunologic: Denies urticaria PMFSH Past Medical History Medical History Abdominal pain Depression Thoracic back pain Surgical History Surgical History S/P cholecystectomy Family History Family History Mother Patient's mother is in good health Father Patient's father is in good health Other Gallbladder disease Social History Social History Social History: primary care physician: Dr. Harry Segura code status: Full code surrogate decision maker: Smoking status: Never smoker Alcohol intake: never Alcohol use details: rarely Substance use: never Substance use type: does not use Living arrangements: with family Additional living arrangements comments: He lives in [place] with his of 10 years. He has a 21-year-old an 18-year-old child. 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 Gender identity (if verbalized by the patient): Male Spiritual care concerns: No Meds Home Medications and Allergies Home Medications Medication Instructions Recorded Confirmed Type escitalopram oxalate 20 mg tablet 20 mg PO DAILY 10/28/19 03/03/22 History (Lexapro) lamotrigine 150 mg tablet 150 mg PO DAILY 10/28/19 03/03/22 History (Lamictal) Allergies Allergy/AdvReac Type Severity Reaction Status Date / Time No Known Allergies Allergy Mild Verified 03/03/22 11:47 Vital Signs Vital Signs - 24 hr 03/03/22 11:48 Temperature 96.8 F L Pulse Rate 72 Respiratory Rate 16 Blood Pressure 127/76 Pulse Oximetry 99 Oxygen Delivery Room Air Exam Const: General: comfortable and no acute distress HENMT: Face/Nose/Sinus: Normal nares present Eyes: General: appearance normal, both eyes and all related structures Neck: Neck: no JVD Resp: Auscultation: clear to auscultation bilaterally Cardio: Rate: regular rate Rhythm: regular rhythm GI: Inspection: non-distended GI Palp: Yes Soft to palpation Skin: General skin exam: normal color Neuro: General: gait normal Speech: normal speech Extrem: General: normal to inspection Psych: Mental Status: mental status grossly normal Assessment and Plan Assessment and plan (1) Abdominal pain: Code(s): R10.9 - Unspecified abdominal pain Status: Acute Assessment and Plan: will assess with egd and bx (2) S/P cholecystectomy: Code(s): Z90.49 - Acquired absence of other specified parts of diges
--- NOTE | 2022-03-03 12:43 | WPDANESEPPF ---
Anes - Initial Pre Proc Eval Procedure: Operation Date: 03/03/22 13:00 Proposed Procedures p Esophagogastroduodenoscopy - Jay Young MD Date/Time: 03/03/22 12:43 Surgeon: Jay Young MD Pre Op Diagnosis: abdominal pain Patient Data Age: 36 Gender: M Height: 1.93 m Weight: 116 kg Last Vital Signs Temp 96.8 F L 03/03/22 11:48 Pulse 72 03/03/22 11:48 Resp 16 03/03/22 11:48 BP 127/76 03/03/22 11:48 Pulse Ox 99 03/03/22 11:48 O2 Del Method Room Air 03/03/22 11:48 Allergies Allergy/AdvReac Type Severity Reaction Status Date / Time No Known Allergies Allergy Mild Verified 03/03/22 11:47 Home Medications Medication Instructions Recorded Confirmed Type escitalopram oxalate 20 mg tablet 20 mg PO DAILY 10/28/19 03/03/22 History (Lexapro) lamotrigine 150 mg tablet 150 mg PO DAILY 10/28/19 03/03/22 History (Lamictal) Patient hx anesthesia problems: none Family hx anesthesia problems: none Results Review: All pre-operative results and documents have been reviewed as part of the pre-operative evaluation. [facility] Past Medical History Medical History Abdominal pain Depression Thoracic back pain Surgical History Surgical History S/P cholecystectomy Family History Family History Mother Patient's mother is in good health Father Patient's father is in good health Other Gallbladder disease Social History Social History Social History: primary care physician: Dr. Harry Segura code status: Full code surrogate decision maker: Smoking status: Never smoker Alcohol intake: never Alcohol use details: rarely Substance use: never Substance use type: does not use Living arrangements: with family Additional living arrangements comments: He lives in [place] with his of 10 years. He has a 21-year-old an 18-year-old child. 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 Gender identity (if verbalized by the patient): Male Spiritual care concerns: No Anes - Eval Final PreProcedure Day of Procedure 03/03/22 12:43 Patient weight: normal Heart: regular rate and rhythm Lungs: clear to auscultation Airway: Mallampati scale class II Neurological: alert and oriented Last oral intake: >/= 8 hours ASA classification: II Emergent: no Anesthetic plan: proceed Anesthesia type and monitoring: general GIVS and standard monitoring Results Review: All pre-operative results and documents have been reviewed as part of the pre-operative evaluation. Informed Consent: The patient's anesthetic plan and its attendant risks and benefits were discussed with the patient/family/POA. Questions were solicited and answers provided to the satisfaction of the patient/family/POA.
[2022-03-03 12:45] VITALS: BP 112/82; PULSE 74; RESP 22; O2SAT 97
[2022-03-03 12:55] VITALS: BP 114/80; PULSE 67; RESP 18; O2SAT 98
[2022-03-03 13:05] VITALS: BP 114/84; PULSE 65; RESP 22; O2SAT 100
== END 2022-03-03 13:15 | disposition home or self-care (01) ==
PROVIDERS: PCP Nurse Practitioner; Visit Provider Internal Medicine Gastroenterology
PROC: 0DJ08ZZ Inspection of Upper Intestinal Tract, Via Natural or Artificial Opening Endoscopic (ICD-10-PCS; CPT 43235; principal; 2022-03-03 13:00)
DX: K29.70 Gastritis, unspecified, without bleeding (principal); F32.A Depression, unspecified; Z90.49 Acquired absence of other specified parts of digestive tract
CPT/HCPCS: 43239; 87081; 88305; J2704; J7120